=== PATIENT | female | born 1995 | race Caucasian/White ===

== ENCOUNTER 2016-12-05 12:47 | Emergency (ER) | payer BC ==
[~2016-12-05] VITALS: Ht 177.8 cm; Wt 68.0 kg
[~2016-12-05 12:47] MED LIST: BCPILLS PO
[2016-12-05 12:56] VITALS: TEMP 36.9; Ht 177.8 cm; Wt 68.0 kg
[2016-12-05] MEDS ORDERED: GI COCKTAIL PO STA (13:06)
[2016-12-05] MEDS ORDERED: ALUMINUM/MAGNESIUM SUSP 30 ML UDC ONE (13:43)
[2016-12-05] MEDS ORDERED: LIDOCAINE HCL 2% VISC SOLN 20 ML UDC ONE (13:43)
[2016-12-05 13:51] LABS: ISTAT CREATININE 0.8 mg/dl; ISTAT HEMOGLOBIN 13.6 g/dl (12.0-16.0); ISTAT IONIZED CALCIUM 1.19 mmol/l
[2016-12-05 13:58] LABS: BASO % 0.4 %; BASO ABS # 0.03 K/uL (0-0.2); COMPLETE YES; EOS % 1.1 %; HEMATOCRIT 37.9 % (37-47); IG% 0.3 %; LYMPH % 30.1 %; LYMPH ABS # 2.13 K/uL (1.2-3.4); MEAN CELL VOLUME 78.8 fL (80-100); MEAN CORPUSCULAR HEMOGLOBIN 28.7 pg (25-34); MEAN CORPUSCULAR HGB CONC 36.4 g/dl (32-36); MEAN PLATELET VOLUME 9.8 fL (7.4-10.4); MONO % 8.6 %; NEUT % 59.5 %; PLATELET COUNT 310 K/uL (130-400); RED BLOOD COUNT 4.81 M/uL (4.2-5.4); WHITE BLOOD COUNT 7.07 K/uL (4.8-10.8)
[2016-12-05 14:07] LABS: BLOOD UREA NITROGEN 15 mg/dl (7-18); BUN/CREATININE RATIO 18.8 (10-20); CALCIUM 9.5 mg/dl (8.5-10.1); CARBON DIOXIDE 26 mmol/L (21-32); CHLORIDE 104 mmol/L (98-107); GLUCOSE 85 mg/dl (70-99); POTASSIUM 3.7 mmol/L (3.5-5.1); SODIUM 138 mmol/L (136-145)
--- NOTE | 2016-12-05 14:11 | DIAGNOSTIC IMAGING REPORT ---
CHEST ONE VIEW PORTABLE CLINICAL HISTORY: Chest pain. COMPARISON STUDY: Chest radiograph February 14, 2015. FINDINGS: Lung volumes are normal. No pneumothorax or pleural effusion is present. Cardiomediastinal silhouette is normal. Pulmonary vascularity is normal. No consolidation is identified. IMPRESSION: No acute cardiopulmonary findings. Electronically signed by: Magdy Carr M.D. 12/05/2016 2:10 PM Dictated Date/Time: 12/05/2016 2:09 PM
--- NOTE | 2016-12-05 14:32 | DIAGNOSTIC IMAGING REPORT ---
CT SCAN OF THE NECK WITH IV CONTRAST CLINICAL HISTORY: Neck pain. Chest tightness. Sensation of something stuck in the throat. COMPARISON STUDY: No priors. TECHNIQUE: Following the IV administration of 93 cc of Optiray 320, CT scan of the soft tissues of the neck was performed from the skull base to the upper chest. Images are reviewed in the axial, sagittal, and coronal planes. IV contrast was administered without complication. A dose lowering technique was utilized adhering to the principles of ALARA. CT DOSE: 334.63 mGy.cm FINDINGS: Upper chest: Visualized apical lung parenchyma is clear. There is pneumomediastinum identified in the superior mediastinum. This appears to be centered around the cervical esophagus at and below the level of the thyroid gland, and dissects into the inferior pharyngeal tissues. This is best seen on axial image #307. There is mild stranding around the esophagus and in the visualized superior mediastinum. No radiodense/metallic foreign body is seen. Pharynx: The nasopharynx, oropharynx, and laryngeal pharynx are normal in appearance. The pharyngeal airway is widely patent. There is no evidence of mass lesion. The vocal cords are symmetric. The parapharyngeal fat is well maintained. The prevertebral/retropharyngeal soft tissues are within normal limits. Lymphadenopathy: No cervical lymphadenopathy is seen Thyroid: Normal in size and attenuation. Salivary glands: The parotid and submandibular glands are within normal limits. Brain parenchyma: The visualized brain parenchyma at the skull base is normal in appearance. Vascular structures: The carotid arteries and jugular veins are widely patent. Skeletal structures: Imaged portions of the calvarium at the skull base are within normal limits. The cervical spine appears intact. Sinuses and mastoids: There is mild mucosal thickening in the right maxillary antrum. The remaining paranasal sinuses are clear. The mastoid air cells are well pneumatized. Orbits: The bony orbits are intact. Orbital contents are normal in appearance. IMPRESSION: 1. There is pneumomediastinum seen in the superior mediastinum which is centered around the cervical esophagus. This dissects into the inferior pharyngeal tissues. Esophageal injury is not excluded. 2. There is mild stranding suggested around the cervical esophagus and in the superior mediastinum. Mediastinitis is not excluded. If there is clinical concern for mediastinitis then dedicated CT imaging of the chest should be considered. 3. The pharyngeal soft tissues are otherwise normal in appearance. Findings were discussed with Dr. Mary in the emergency department at the time of interpretation. Electronically signed by: Haseeb Perez M.D. 12/05/2016 2:30 PM Dictated Date/Time: 12/05/2016 2:11 PM
[2016-12-05] MEDS ORDERED: PIPERACILLIN/TAZOBACTAM 4.5 GM/100ML D5W IV STA (14:38)
[2016-12-05 16:00] VITALS: BP 135/95; PULSE 88; O2SAT 100
--- NOTE | 2016-12-05 16:04 | EMERGENCY ROOM VISIT NOTE ---
History Report prepared by Tayloribdari: Cathy Wick Under the Supervision of: Dr. Dilan Mary D.O. First contact with patient: 12:59 Chief Complaint: THROAT PAIN/INJURY Stated Complaint: ESOPHAGUS/TRACHEA PAIN,TIGHTENING DISCOMFORT CHEST History of Present Illness The patient is a 21 year old female who presents to the Emergency Room with complaints of increasing throat pain that began yesterday morning. She currently rates her discomfort as a 6/10 in severity. The patient states that yesterday she developed a pain to her throat, noting that she thought something had gotten caught in her throat. She states that she has still been able to swallow, but notices increased pain with swallowing. The patient states that this morning she has been noticing gradually increased chest tightness. The patient denies eating anything different yesterday. She does report that she had her wisdom teeth extracted last , and states that she has finished her antibiotics. The patient reports a family history of esophageal cancer. She states that she has occasionally drank alcohol for the past three years. Patient denies diabetes, hypertension, hyperlipidemia, CAD, history of sudden at a young age, and smoking. She also admits to breathing exercises during yoga class. Pt denies headache, change in vision, fevers, shortness of breath, nausea, vomiting, diarrhea, pain with urination, and melena. Source of History: patient Onset: yesterday morning Position: throat Symptom Intensity: 6/10 Quality: other (tightness) Timing: other (increasing) Associated Symptoms: + chest pain Review of Systems See HPI for pertinent positives & negatives. A total of 10 systems reviewed and were otherwise negative. Past Medical & Surgical Surgical Problems: (1) H/O wisdom tooth extraction (2) Hx of tonsillectomy Family History Patient reports no known family medical history. Social History Smoking Status: Never Smoker Marital Status: single Housing Status: lives with friends Occupation Status: [employer] student Current/Historical Medications No Active Prescriptions or Reported Meds Allergies Coded Allergies: No Known Allergies (Unverified , 12/05/16) Physical Exam Vital Signs Date Time Temp Pulse Resp B/P (MAP) Pulse Ox O2 Delivery O2 Flow Rate FiO2 12/05/16 15:30 88 26 135/95 100 Room Air 12/05/16 14:56 78 18 130/99 100 Room Air 12/05/16 13:24 60 12/05/16 12:56 36.9 76 18 126/89 99 Room Air Physical Exam GENERAL: alert, well appearing, sitting up in bed, well nourished, no distress, non-toxic, normal phonation EYE EXAM: normal conjunctiva, PERRL and EOM's grossly intact OROPHARYNX: no exudate, no erythema, lips, buccal mucosa, and tongue normal and mucous membranes are moist NECK: supple, no nuchal rigidity, no adenopathy, non-tender, no stridor LUNGS: Clear to auscultation. Normal chest wall mechanics HEART: no murmurs, S1 normal and S2 normal ABDOMEN: abdomen soft, non-tender, normo-active bowel sounds, no masses, no rebound or guarding. BACK: Back is symmetrical on inspection and there is no deformity, no midline tenderness, no CVA tenderness. SKIN: no rashes and no bruising UPPER EXTREMITIES: upper extremities are grossly normal. LOWER EXTREMITIES: No pitting edema. NEURO EXAM: Normal sensorium, cranial nerves II-XII grossly intact, Medical Decision & Procedures ER Provider Diagnostic Interpretation: Radiology results as stated below per my review and the radiologist's interpretation: CHEST ONE VIEW PORTABLE CLINICAL HISTORY: Chest pain. COMPARISON STUDY: Chest radiograph February 14, 2015. FINDINGS: Lung volumes are normal. No pneumothorax or pleural effusion is present. Cardiomediastinal silhouette is normal. Pulmonary vascularity is normal. No consolidation is identified. IMPRESSION: No acute cardiopulmonary findings. Electronically signed by: Magdy Carr M.D. 12/05/2016 2:10 PM Dictated Date/Time: 12/05/2016 2:[address] SCAN OF THE NECK WITH IV CONTRAST CLINICAL HISTORY: Neck pain. Chest tightness. Sensation of something stuck in the throat. COMPARISON STUDY: No priors. TECHNIQUE: Following the IV administration of 93 cc of Optiray 320, CT scan of the soft tissues of the neck was performed from the skull base to the upper chest. Images are reviewed in the axial, sagittal, and coronal planes. IV contrast was administered without complication. A dose lowering technique was utilized adhering to the principles of ALARA. CT DOSE: 334.63 mGy.cm FINDINGS: Upper chest: Visualized apical lung parenchyma is clear. There is pneumomediastinum identified in the superior mediastinum. This appears to be centered around the cervical esophagus at and below the level of the thyroid gland, and dissects into the inferior pharyngeal tissues. This is best seen on axial image #307. There is mild stranding around the esophagus and in the visualized superior mediastinum. No radiodense/metallic foreign body is seen. Pharynx: The nasopharynx, oropharynx, and laryngeal pharynx are normal in appearance. The pharyngeal airway is widely patent. There is no evidence of mass lesion. The vocal cords are symmetric. The parapharyngeal fat is well maintained. The prevertebral/retropharyngeal soft tissues are within normal limits. Lymphadenopathy: No cervical lymphadenopathy is seen Thyroid: Normal in size and attenuation. Salivary glands: The parotid and submandibular glands are within normal limits. Brain parenchyma: The visualized brain parenchyma at the skull base is normal in appearance. Vascular structures: The carotid arteries and jugular veins are widely patent. Skeletal structures: Imaged portions of the calvarium at the skull base are within normal limits. The cervical spine appears intact. Sinuses and mastoids: There is mild mucosal thickening in the right maxillary antrum. The remaining paranasal sinuses are clear. The mastoid air cells are well pneumatized. Orbits: The bony orbits are intact. Orbital contents are normal in appearance. IMPRESSION: 1. There is pneumomediastinum seen in the superior mediastinum which is centered around the cervical esophagus. This dissects into the inferior pharyngeal tissues. Esophageal injury is not excluded. 2. There is mild stranding suggested around the cervical esophagus and in the superior mediastinum. Mediastinitis is not excluded. If there is clinical concern for mediastinitis then dedicated CT imaging of the chest should be considered. 3. The pharyngeal soft tissues are otherwise normal in appearance. Findings were discussed with Dr. Mary in the emergency department at the time of interpretation. Electronically signed by: Haseeb Perez M.D. 12/05/2016 2:30 PM Dictated Date/Time: 12/05/2016 2:11 PM Laboratory Results 12/05/16 13:30 Red Blood Count 4.81, Mean Corpuscular Volume 78.8, Mean Corpuscular Hemoglobin 28.7, Mean Corpuscular Hemoglobin Concent 36.4, Mean Platelet Volume 9.8, Neutrophils (%) (Auto) 59.5, Lymphocytes (%) (Auto) 30.1, Monocytes (%) (Auto) 8.6, Eosinophils (%) (Auto) 1.1, Basophils (%) (Auto) 0.4, Neutrophils # (Auto) 4.20, Lymphocytes # (Auto) 2.13, Monocytes # (Auto) 0.61, Eosinophils # (Auto) 0.08, Basophils # (Auto) 0.03 12/05/16 13:30 Test 12/05/16 13:30 12/05/16 13:39 White Blood Count 7.07 K/uL (4.8-10.8) Red Blood Count 4.81 M/uL (4.2-5.4) Hemoglobin 13.8 g/dL (12.0-16.0) Hematocrit 37.9 % (37-47) Mean Corpuscular Volume 78.8 fL (80-100) Mean Corpuscular Hemoglobin 28.7 pg (25-34) Mean Corpuscular Hemoglobin Concent 36.4 g/dl (32-36) Platelet Count 310 K/uL (130-400) Mean Platelet Volume 9.8 fL (7.4-10.4) Neutrophils (%) (Auto) 59.5 % Lymphocytes (%) (Auto) 30.1 % Monocytes (%) (Auto) 8.6 % Eosinophils (%) (Auto) 1.1 % Basophils (%) (Auto) 0.4 % Neutrophils # (Auto) 4.20 K/uL (1.4-6.5) Lymphocytes # (Auto) 2.13 K/uL (1.2-3.4) Monocytes # (Auto) 0.61 K/uL (0.11-0.59) Eosinophils # (Auto) 0.08 K/uL (0-0.5) Basophils # (Auto) 0.03 K/uL (0-0.2) RDW Standard Deviation 35.2 fL (36.4-46.3) RDW Coefficient of Variation 12.2 % (11.5-14.5) Immature Granulocyte % (Auto) 0.3 % Immature Granulocyte # (Auto) 0.02 K/uL (0.00-0.02) Est Creatinine Clear Calc Drug Dose 120.4 ml/min Estimated GFR () 123.0 Estimated GFR (Non- 106.1 BUN/Creatinine Ratio 18.8 (10-20) Calcium Level 9.5 mg/dl (8.5-10.1) Troponin I < 0.015 ng/ml (0-0.045) Bedside Hemoglobin 13.6 g/dl (12.0-16.0) Bedside Hematocrit 40 % (37-47) Bedside Sodium 139 mEq/L (135-144) Bedside Potassium 3.8 mEq/L (3.3-5.0) Bedside Chloride 104 mEq/L (101-112) Bedside Total CO2 23 mEq/l (24-31) Anion Gap 17.0 mmol/L (16-25) Bedside Blood Urea Nitrogen 15 mg/dl (7-18) Bedside Creatinine 0.8 mg/dl Bedside Glucose (other) 85 mg/dl (70-99) Bedside Ionized Calcium (Tesha) 1.19 mmol/l Laboratory results per my review. Medications Administered Medications (Trade) Dose Ordered Sig/Rosalba Route Start Time Stop Time Status Last Admin Dose Admin Miscellaneous Medication (Gi Cocktail) 24 ml NOW STAT PO 12/05/16 13:06 12/05/16 13:08 DC 12/05/16 13:49 24 ML Piperacillin Sod/ Tazobactam Sod (Zosyn Iv) 4.5 gm NOW STAT IV 12/05/16 14:38 12/05/16 14:39 DC 12/05/16 14:51 4.5 GM ECG Indication: chest pain (tightness) Rate (beats per minute): 53 Rhythm: sinus bradycardia Findings: no ectopy, other (normal axis) ED Course ED COURSE: Vital signs were reviewed and showed hypertension The patients medical record was reviewed The above diagnostic studies were performed and reviewed. ED treatments and interventions as stated above. 1300: The patient was evaluated in room C12B. A complete history and physical examination was performed. 1306: Ordered GI Cocktail 24 ml PO. 1423: I discussed the patients case with Dr. Perez, Radiology. He states that the patient has a pneumomediastinum. 1435: I reevaluated the patient and she is resting. I discussed the exam findings with her and I discussed the treatment plan with her. Cardiothoracic Surgery will be consulted. 1436: I discussed the patients case with Sylvester Hollingsworth, Cardiothoracic Surgery [facility] Rodriguez. He states that Dr. Ignacio is out of the office and states that the patient should be transferred. 1438: Ordered Zosyn IV 4.5 gm IV. 1500: Upon reevaluation, the patient is resting comfortably.I discussed my findings with the patient and her sister and they understand and agree with the treatment plan. 1506: I discussed the patient's case with Dr. Peacock, Cardiothoracic Surgery [facility] and Emergency Department. The Emergency Department accepted the patient for further evaluation and treatment/Dr. Ramsay. 1600: Patient left the ER in transit via ambulance Medical Decision The patient is a 21 year old female who presents to the ED with complaints of throat pain. Differential diagnosis includes: Calin's angina, peritonsillar abscess, retropharyngeal abscess, abrasion of esophagus, foreign body. Patient is a 21-year-old female who presents to ER for trouble swallowing and upper chest pain. EKG is unremarkable. She has no cardiac risk factors. Troponin was negative. CT of her neck shows pneumomediastinum with ? mediastinitis. No thoracic attending within the state. Risk factor includes recent dental extraction. She also notes that she has been performing yoga breathing exercises. She does not smoke. She denies any trauma. Patient was given IV Zosyn. She was up-to-date at bedside. She is extremely well- appearing for mediastinitis. I favor this is less likely. Sister who is a nurse was updated at bedside. Discussed case with Dr. Peacock from [facility] who agreed to see the patient. And discussed the case with Dr. Ramsay from [facility]. Patient was transferred and accepted to [facility] ER. Medication Reconcilliation Current Medication List: was personally reviewed by me Blood Pressure Screening Patient's blood pressure: Elevated blood pressure Blood pressure disposition: Elevated BP felt to be situational, Did not require urgent referral Consults Time Called: 1426 Consulting Physician: Sylvester Hollingsworth, Cardiothoracic Surgery [facility] Returned Call: [phone] I discussed the patients case with Sylvester Hollingsworth, Cardiothoracic Surgery [facility]. He states that Dr. Ignacio is out of the office and states that the patient should be transferred. Additional Consults: Time Called: 1440 Consulted Physician: Dr. Peacock Returned Call: [phone] Additional Comments: I discussed the patient's case with Dr. Peacock, Cardiothoracic Surgery [facility] Emergency Department. The Emergency Department accepted the patient for further evaluation and treatment. Impression Primary Impression: Pneumomediastinum Scribe Attestation The scribe's documentation has been prepared under my direction and personally reviewed by me in its entirety. I confirm that the note above accurately reflects all work, treatment, procedures, and medical decision making performed by me. Departure Information Dispostion Transfer Acute Care Facility Prescriptions No Active Prescriptions or Reported Meds Referrals [facility] (PCP)
== END 2016-12-05 16:01 | disposition short-term general hospital (02) ==
LOC: C.EDB 12:49 → C.EDC 16:01
DX: J98.2 Interstitial emphysema (principal); Z98.818 Other dental procedure status; Z90.89 Acquired absence of other organs; Z80.0 Family history of malignant neoplasm of digestive organs

== ENCOUNTER 2017-04-03 00:15 | Emergency (ER) | payer BC ==
[~2017-04-03] VITALS: Ht 177.8 cm; Wt 70.4 kg
[2017-04-03 00:19] VITALS: TEMP 37.5; Ht 177.8 cm; Wt 70.4 kg
[2017-04-03] MEDS ORDERED: ONDANSETRON INJ 2 MG/ML 2 ML VIAL IV STA (01:01)
[2017-04-03 01:06] VITALS: O2SAT 98
[2017-04-03] MEDS ORDERED: SODIUM CHLORIDE 0.9% 1000ML 1,000 ML IV ONE (01:15)
[2017-04-03] MEDS ORDERED: MoRPHine SULFATE 4 MG/ML 1 ML CARP\\VIAL IV ONE (01:15)
[2017-04-03] MEDS ORDERED: OPTIRAY 320 IV PRN (01:15)
[2017-04-03 01:30] LABS: BASO % 0.3 %; BASO ABS # 0.02 K/uL (0-0.2); EOS % 1.1 %; EOS ABS # 0.08 K/uL (0-0.5); HEMATOCRIT 39.2 % (37-47); HEMOGLOBIN 13.9 g/dL (12.0-16.0); IG# 0.01 K/uL (0.00-0.02); LYMPH % 37.1 %; LYMPH ABS # 2.76 K/uL (1.2-3.4); MEAN CELL VOLUME 80.8 fL (80-100); MEAN CORPUSCULAR HEMOGLOBIN 28.7 pg (25-34); MEAN CORPUSCULAR HGB CONC 35.5 g/dl (32-36); MEAN PLATELET VOLUME 9.8 fL (7.4-10.4); MONO ABS # 0.52 K/uL (0.11-0.59); NEUT % 54.4 %; NEUT ABS # 4.05 K/uL (1.4-6.5); PLATELET COUNT 263 K/uL (130-400); RED CELL DISTRIBUTION WIDTH CV 12.7 % (11.5-14.5); WHITE BLOOD COUNT 7.44 K/uL (4.8-10.8)
[2017-04-03 01:48] LABS: ALBUMIN 4.1 gm/dl (3.4-5.0); CALCIUM 8.7 mg/dl (8.5-10.1); CREATININE 0.78 mg/dl (0.60-1.20); POTASSIUM 3.5 mmol/L (3.5-5.1)
[2017-04-03 01:50] LABS: TOTAL PROTEIN 7.2 gm/dl (6.4-8.2)
[2017-04-03 04:12] VITALS: BP 106/66; PULSE 81; O2SAT 97
--- NOTE | 2017-04-03 06:28 | DIAGNOSTIC IMAGING REPORT ---
CHEST ONE VIEW PORTABLE CLINICAL HISTORY: CHest pain. Hx of pntx and pneumediastinum in past dyspnea COMPARISON STUDY: 12/03/2016 FINDINGS: Slight chronic basilar interstitial prominence. Upper lungs are considered clear. No well-defined focal infiltrate. IMPRESSION: Mild basilar bronchitis. The above report was generated using voice recognition software. It may contain grammatical, syntax or spelling errors. Electronically signed by: Gordy Moreira M.D. 04/03/2017 6:27 AM Dictated Date/Time: 04/03/2017 6:26 AM
--- NOTE | 2017-04-03 06:44 | DIAGNOSTIC IMAGING REPORT ---
SOFT TISSUE NECK WITH CLINICAL HISTORY: Chest pain. Hx of pntx and pneumediastinum in past chest pain. Dyspnea. TECHNIQUE: Transaxial acquisition with multi axial reformatted images COMPARISON STUDY: 12/05/2016 FINDINGS: Major salivary glands are unremarkable. No significant cervical adenopathy. Glottic and subglottic regions are unremarkable. There is no significant adenopathy. Pulmonary apices are clear. IMPRESSION: Negative study The above report was generated using voice recognition software. It may contain grammatical, syntax or spelling errors. Electronically signed by: Gordy Moreira M.D. 04/03/2017 6:43 AM Dictated Date/Time: 04/03/2017 6:41 AM
--- NOTE | 2017-04-03 07:21 | DIAGNOSTIC IMAGING REPORT ---
CHEST CT WITH CONTRAST CT DOSE: 514.52 mGy.cm HISTORY: Atypical Chest pain. Hx of pntx and pneumediastinum in past TECHNIQUE: Multiaxial CT images of the chest were performed following the intravenous administration of contrast. A dose lowering technique was utilized adhering to the principles of ALARA. COMPARISON: Neck CT 12/05/2016. FINDINGS: The lungs are clear. The mediastinal vascular structures are within normal limits. No mediastinal or hilar lymphadenopathy. No pleural effusion or pneumothorax. Limited views of the upper abdomen demonstrate a normal liver and spleen. No pneumomediastinum. Trace pericardial effusion. Small amount of soft tissue within the anterior mediastinum likely represents residual thymus given the patient's age. IMPRESSION: Trace pericardial fluid. Otherwise, no significant abnormality within the chest. Electronically signed by: Jeremie Carbajal M.D. 04/03/2017 7:19 AM Dictated Date/Time: 04/03/2017 7:15 AM
--- NOTE | 2017-04-06 23:06 | EMERGENCY ROOM VISIT NOTE ---
History First contact with patient: 00:48 Chief Complaint: RESPIRATORY PROBLEMS Stated Complaint: PNEUMONIA STINUM REPEAT SYMPTOMS Nursing Triage Summary: Patient reports history of pneumomediasteinum inoct. Patient reports same s/s tonight. History of Present Illness The patient is a 21 year old female who presents to the Emergency Room with complaints of chest and neck pain that began worsening over the past several hours. The patient has a somewhat compensated past medical history with spontaneous pneumothorax while she was in high school as well as a spontaneous pneumomediastinum last year in college. The patient did not have injury or trauma with either of these episodes. She states that her chest feels heavy and similar to when she had a pneumomediastinum. The patient has not had fever or chills. No vomiting or retching. No significant cough or abdominal pain. She has not taken anything [id number] for her symptoms, and rates her discomfort a 7/10. She has not had recent travel history. No new medications. She has followed with thoracic medicine locally. Review of Systems More than 10 systems were reviewed and otherwise negative with the exception of history of present illness. Past Medical/Surgical History Surgical Problems: (1) H/O wisdom tooth extraction (2) Hx of tonsillectomy Family History Patient reports no known family medical history. Social History Smoking Status: Never Smoker Marital Status: single Housing Status: lives with friends Occupation Status: [employer] student Current/Historical Medications No Active Prescriptions or Reported Meds Physical Exam Vital Signs Date Time Temp Pulse Resp B/P (MAP) Pulse Ox O2 Delivery O2 Flow Rate FiO2 04/03/17 04:12 81 16 106/66 97 04/03/17 02:30 71 16 118/68 98 Room Air 04/03/17 01:06 98 Room Air 04/03/17 00:43 82 04/03/17 00:19 37.5 92 16 153/95 98 Room Air Physical Exam VITALS: Vitals are noted on the nurse's note and reviewed by myself. Vital signs stable. GENERAL: Well-developed, well-nourished, white female, who is in no acute distress and resting comfortably. Patient is cooperative with the examination. HEAD: Normocephalic atraumatic. EARS: External ear normal. External auditory canals clear, tympanic membranes pearly pinzon without erythema or effusion bilaterally. EYES: Pupils equal round and reactive to light and accommodation. Conjunctivae without injection, sclerae without icterus. Extraocular movements intact. NOSE: Patent, turbinates without inflammation or discharge. MOUTH: Mucous membranes moist. Tonsils are not enlarged. Pharynx without erythema, blood, or exudate. Uvula midline. Airway patent. NECK: Supple without nuchal rigidity. No lymphadenopathy. No thyromegaly. Cervical spine is nontender. No gross crepitus on palpation HEART: Regular rate and rhythm without murmurs gallops or rubs. LUNGS: Clear to auscultation bilaterally without wheezes, rales or rhonchi. No retractions or accessory muscle use. Medical Decision & Procedures ER Provider Diagnostic Interpretation: CHEST ONE VIEW PORTABLE CLINICAL HISTORY: CHest pain. Hx of pntx and pneumediastinum in past dyspnea COMPARISON STUDY: 12/03/2016 FINDINGS: Slight chronic basilar interstitial prominence. Upper lungs are considered clear. No well-defined focal infiltrate. IMPRESSION: Mild basilar bronchitis. SOFT TISSUE NECK WITH CLINICAL HISTORY: Chest pain. Hx of pntx and pneumediastinum in past chest pain. Dyspnea. TECHNIQUE: Transaxial acquisition with multi axial reformatted images COMPARISON STUDY: 12/05/2016 FINDINGS: Major salivary glands are unremarkable. No significant cervical adenopathy. Glottic and subglottic regions are unremarkable. There is no significant adenopathy. Pulmonary apices are clear. IMPRESSION: Negative study CHEST CT WITH CONTRAST CT DOSE: 514.52 mGy.cm HISTORY: Atypical Chest pain. Hx of pntx and pneumediastinum in past TECHNIQUE: Multiaxial CT images of the chest were performed following the intravenous administration of contrast. A dose lowering technique was utilized adhering to the principles of ALARA. COMPARISON: Neck CT 12/05/2016. FINDINGS: The lungs are clear. The mediastinal vascular structures are within normal limits. No mediastinal or hilar lymphadenopathy. No pleural effusion or pneumothorax. Limited views of the upper abdomen demonstrate a normal liver and spleen. No pneumomediastinum. Trace pericardial effusion. Small amount of soft tissue within the anterior mediastinum likely represents residual thymus given the patient's age. IMPRESSION: Trace pericardial fluid. Otherwise, no significant abnormality within the chest. Laboratory Results 04/03/17 01:15 Red Blood Count 4.85, Mean Corpuscular Volume 80.8, Mean Corpuscular Hemoglobin 28.7, Mean Corpuscular Hemoglobin Concent 35.5, Mean Platelet Volume 9.8, Neutrophils (%) (Auto) 54.4, Lymphocytes (%) (Auto) 37.1, Monocytes (%) (Auto) 7.0, Eosinophils (%) (Auto) 1.1, Basophils (%) (Auto) 0.3, Neutrophils # (Auto) 4.05, Lymphocytes # (Auto) 2.76, Monocytes # (Auto) 0.52, Eosinophils # (Auto) 0.08, Basophils # (Auto) 0.02 04/03/17 01:15 Test 04/03/17 01:15 04/03/17 01:19 White Blood Count 7.44 K/uL (4.8-10.8) Red Blood Count 4.85 M/uL (4.2-5.4) Hemoglobin 13.9 g/dL (12.0-16.0) Hematocrit 39.2 % (37-47) Mean Corpuscular Volume 80.8 fL (80-100) Mean Corpuscular Hemoglobin 28.7 pg (25-34) Mean Corpuscular Hemoglobin Concent 35.5 g/dl (32-36) Platelet Count 263 K/uL (130-400) Mean Platelet Volume 9.8 fL (7.4-10.4) Neutrophils (%) (Auto) 54.4 % Lymphocytes (%) (Auto) 37.1 % Monocytes (%) (Auto) 7.0 % Eosinophils (%) (Auto) 1.1 % Basophils (%) (Auto) 0.3 % Neutrophils # (Auto) 4.05 K/uL (1.4-6.5) Lymphocytes # (Auto) 2.76 K/uL (1.2-3.4) Monocytes # (Auto) 0.52 K/uL (0.11-0.59) Eosinophils # (Auto) 0.08 K/uL (0-0.5) Basophils # (Auto) 0.02 K/uL (0-0.2) RDW Standard Deviation 37.0 fL (36.4-46.3) RDW Coefficient of Variation 12.7 % (11.5-14.5) Immature Granulocyte % (Auto) 0.1 % Immature Granulocyte # (Auto) 0.01 K/uL (0.00-0.02) Anion Gap 6.0 mmol/L (3-11) Est Creatinine Clear Calc Drug Dose 124.4 ml/min Estimated GFR () 126.8 Estimated GFR (Non- 109.4 BUN/Creatinine Ratio 12.8 (10-20) Calcium Level 8.7 mg/dl (8.5-10.1) Total Bilirubin 0.4 mg/dl (0.2-1) Aspartate Amino Transf (AST/SGOT) 18 U/L (15-37) Alanine Aminotransferase (ALT/SGPT) 25 U/L (12-78) Alkaline Phosphatase 47 U/L (45-117) Total Protein 7.2 gm/dl (6.4-8.2) Albumin 4.1 gm/dl (3.4-5.0) Globulin 3.1 gm/dl (2.5-4.0) Albumin/Globulin Ratio 1.3 (0.9-2) Bedside Troponin I < 0.030 ng/ml (0-0.045) Medications Administered Medications (Trade) Dose Ordered Sig/Rosalba Route Start Time Stop Time Status Last Admin Dose Admin Sodium Chloride 1,000 ml @ 999 mls/hr Q1H1M ONCE IV 04/03/17 01:15 04/03/17 02:15 DC 04/03/17 01:15 999 MLS/HR Morphine Sulfate (MoRPHine SULFATE INJ) 4 mg NOW ONCE IV 04/03/17 01:15 04/03/17 01:16 DC 04/03/17 01:25 4 MG Ondansetron HCl (Zofran Inj) 4 mg NOW STAT IV 04/03/17 01:01 04/03/17 01:04 DC 04/03/17 01:25 4 MG ECG Change: Normal sinus rhythm with sinus arrhythmia Normal ECG @76 bpm When compared with ECG of 05-DEC-2016 13:17, No significant change was found Confirmed by SONIA MCDANIEL ED Course Physical exam and history were performed. Nursing notes, EMR, and Medication List were personally reviewed. Patient appears to have a history of pneumomediastinum and pneumothorax in the past. She reports that her symptoms are similar to her last episode. Review of EMR shows she had this last episode about one year ago, where air was not seen on plain films but was clearly visible on CAT scan. IV access was established and labs were obtained. The patient was hydrated with normal saline. EKG was reviewed by myself and was normal sinus rhythm at [address] elevation. She was placed on the psychiatric mental health nurse. The patient's blood work is as above and was reviewed. She does not have a significantly elevated white blood cell count, gross anemia, bandemia, or significant electrolyte imbalance. Transaminases are nondiagnostic. Troponin 1 is negative. Chest x-ray did not show obvious findings. CT scan of the neck and chest are also without significant findings. The case was discussed with my attending physician, and overall we feel the patient is well for discharge home. She does not appear to have obvious findings on x-ray or CT scan. Her blood work overall looks well. She may have an early viral infection contributing to her symptoms, and she will need close follow-up with [facility]. She was otherwise invited back to ER with any new, worsening, or concerning symptoms. The chart was completed utilizing [facility] Speech Voice Recognition Software. Grammatical errors, random word insertions, pronoun errors, and incomplete sentences are an occasional consequence of this system due to software limitations, ambient noise, and hardware issues. Any formal questions or concerns about the content, text, or information contained within the body of this dictation should be directly addressed to the provider for clarification. . Medical Decision Differential diagnosis includes, but is not limited to: Myocardial infarction, dysrhythmia, pericarditis, pneumothorax, aortic aneurysm/dissection, DVT/PE, anxiety, GERD, PUD, electrolyte imbalance, thyroid disorder, pneumonia, bronchitis, pancreatitis, and others Impression Primary Impression: Discomfort in chest Departure Information Dispostion Home / Self-Care Condition GOOD Prescriptions No Active Prescriptions or Reported Meds Forms HOME CARE DOCUMENTATION FORM, School Instructions, Additional Instructions: Patient was seen and evaluated today in the emergency department fo medical care. Return to class/work on 04/06/2017. Please excuse. IMPORTANT VISIT INFORMATION Patient Instructions My [facility] Additional Instructions You were seen and evaluated today on an emergency basis only. This is not a substitute for, or an effort to provide, complete comprehensive medical care. It is not possible to recognize and treat all injuries or illnesses in a single emergency department visit. For this reason it is recommended that you followup with your primary care physician or [facility] the next 2-3 days for recheck of your condition. You are welcome to return to the emergency department anytime with new, worsening, or concerning symptoms. School Instructions Additional School Instructions: Patient was seen and evaluated today in the emergency department for medical care. Return to class/work on 04/06/2017. Please excuse.
== END 2017-04-03 04:12 | disposition home or self-care (01) ==
LOC: C.EDB 00:17
DX: R07.9 Chest pain, unspecified (principal)